=== PATIENT | male | born 1995 | race Native Hawaiian/Other Pacific Islander ===

== ENCOUNTER 2018-09-01 14:29 | Emergency (ER) | payer BC ==
[~2018-09-01] VITALS: Ht 177.8 cm; Wt 72.6 kg
[2018-09-01 14:53] VITALS: TEMP 99.5
[2018-09-01 17:30] VITALS: BP 118/70
== END 2018-09-01 17:33 | disposition home or self-care (01) ==
LOC: ED 14:29
DX: J09.X2 Influenza due to identified novel influenza A virus with other respiratory manifestations (principal); R05 Cough; R09.81 Nasal congestion; R09.89 Other specified symptoms and signs involving the circulatory and respiratory systems; R51 Headache
CPT/HCPCS: 87651; 99283

== ENCOUNTER 2019-02-18 18:15 | Outpatient (CLI) | payer OTHER | END 2019-02-18 18:26 | disposition short-term general hospital (02) | LOC: AMB 18:15 | DX: S09.8XXA Other specified injuries of head, initial encounter (principal); V89.2XXA Person injured in unspecified motor-vehicle accident, traffic, initial encounter; Y93.89 Activity, other specified; Y92.413 State road as the place of occurrence of the external cause | CPT/HCPCS: A0425; A0427 ==

== ENCOUNTER 2019-02-18 18:34 | Emergency (ER) | payer OTHER ==
[~2019-02-18] VITALS: Ht 177.8 cm; Wt 72.6 kg
[2019-02-18 19:03] LABS: PLATELET COUNT 250 K/uL (142-355)
[2019-02-18 19:12] LABS: POTASSIUM 3.6 mmol/L (3.6-5.2)
[2019-02-18 22:10] VITALS: BP 128/77; TEMP 98.2
== END 2019-02-18 22:05 | disposition short-term general hospital (02) ==
LOC: ED 18:34
PROVIDERS: Student in an Organized Health Care Education/Training Program
DX: S02.609A Fracture of mandible, unspecified, initial encounter for closed fracture (principal); S22.31XA Fracture of one rib, right side, initial encounter for closed fracture; V48.5XXA Car driver injured in noncollision transport accident in traffic accident, initial encounter; Y92.410 Unspecified street and highway as the place of occurrence of the external cause; Y93.9 Activity, unspecified
CPT/HCPCS: 36415; 80053; 80307; 80320; 81000; 85027; 93005; 96360; 96365; 96374; 96375; 96376; 99285; J2270; J2405; Q9963

== ENCOUNTER 2019-02-18 22:23 | Outpatient (CLI) | payer OTHER | END 2019-02-18 23:39 | disposition short-term general hospital (02) | LOC: AMB 22:23 | DX: S02.69XA Fracture of mandible of other specified site, initial encounter for closed fracture (principal); S22.31XA Fracture of one rib, right side, initial encounter for closed fracture; M54.2 Cervicalgia; V49.9XXA Car occupant (driver) (passenger) injured in unspecified traffic accident, initial encounter; Y92.413 State road as the place of occurrence of the external cause | CPT/HCPCS: A0425; A0427 ==